=== PATIENT | male | born 1990 | race Caucasian/White ===

== ENCOUNTER → 2021-01-02 | Outpatient (CLI) | payer OTHER ==
--- NOTE | 2021-01-02 11:27 | REP ---
INDICATION: PAIN IN LEFT ANKLE AND JOINTS OF LEFT FOOT COMPARISON: None. TECHNIQUE: AP, lateral, bilateral oblique views. FINDINGS: Lateral swelling consistent with inversion injury. No acute fracture or dislocation. Joint spaces and ankle mortise are intact. No subcutaneous emphysema or foreign body. IMPRESSION: Lateral swelling. No fracture. <Electronically signed by Jose Zamora > 01/02/21 1129
== END ==
LOC: M PLAIMG 10:51
PROVIDERS: ATTEND Physician Assistant
DX: M25.472 Effusion, left ankle (principal); M25.572 Pain in left ankle and joints of left foot